=== PATIENT | male | born 1990 | race Caucasian/White ===

== ENCOUNTER 2019-05-22 07:26 | Emergency (ER) | payer SELFPAY ==
[~2019-05-22] VITALS: Ht 177.8 cm; Wt 95.3 kg
[2019-05-22 07:39] VITALS: BP 123/75
== END 2019-05-22 08:01 | disposition home or self-care (01) ==
LOC: ED 07:26
DX: J06.9 Acute upper respiratory infection, unspecified (principal)
CPT/HCPCS: 87804